=== PATIENT | male | born 1975 | race Caucasian/White ===

== ENCOUNTER 2017-03-02 23:21 | Inpatient (IN) | payer OTHER ==
[~2017-03-02] VITALS: Ht 182.9 cm; Wt 77.0 kg
[2017-03-02 23:24] VITALS: BP 148/100; PULSE 74; RESP 22; TEMP 98.7; O2SAT 96
[2017-03-02] MEDS ORDERED: CLON1 PO (23:29)
[2017-03-02] MEDS ORDERED: ADDE10 PO (23:29)
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
[2017-03-03] MEDS: PCA - TOTAL MG DILAUDID DELIVERED PER SHIFT OTHER SCH ×4 (00:45→22:00)
[2017-03-03] MEDS ORDERED: CHLORHEXIDINE GLUCONATE 2 % 1 PACK (2 CLOTHS) TOP PRN (00:45)
[2017-03-03] MEDS ORDERED: NALOXONE HCL 0.4 MG/ML AMP IV PUSH PRN (00:45)
[2017-03-03] MEDS ORDERED: MISCELLANEOUS NURSING INFORMATION XX SCH (00:45)
[2017-03-03] MEDS ORDERED: ONDANSETRON HCL 4 MG/2 ML VIAL IV PUSH PRN (00:45)
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
[2017-03-03] MEDS: KETOROLAC TROMETHAMINE 30 MG/ML (IVP) VIAL IVP SCH ×4 (01:11→18:49)
[2017-03-03] MEDS: METHOCARBAMOL 500 MG TAB PO SCH ×4 (01:11→20:25)
[2017-03-03 01:59] VITALS: BP 143/93; PULSE 80; RESP 18; TEMP 97.5; O2SAT 98
[2017-03-03] MEDS ORDERED: METOPROLOL TARTRATE 25 MG TAB PO PRN (02:30)
[2017-03-03] MEDS ORDERED: CHLORHEXIDINE GLUCONATE 2 % 1 PACK (2 CLOTHS) TOPICAL PRN (02:30)
[2017-03-03] MEDS ORDERED: SODIUM CHLORID 0.9% 500 ML IV PRN (02:30)
[2017-03-03] MEDS ORDERED: POVIDONE IODINE 5% (ANTISEPSIS KIT) 4 APPLICATIONS EACH NARE PRN (02:30)
[2017-03-03] MEDS ORDERED: LACTATED RINGER'S 1000 ML IV PRN (02:30)
[2017-03-03] MEDS: HYDROmorphone HCL PCA 6 MG/30 ML IV SCH ×2 (02:35→20:24)
[2017-03-03] MEDS ORDERED: CHLORHEXIDINE GLUCONATE 2 % 1 PACK (2 CLOTHS) TOP SCH (04:00)
[2017-03-03 04:14] VITALS: BP 122/67; PULSE 78; RESP 18; TEMP 98; O2SAT 98
--- NOTE | 2017-03-03 06:24 | RADRPT ---
EXAM DATE/TIME: 03/03/2017 05:41 [facility] COMPARISON: No previous studies available for comparison. INDICATIONS : Evaluate for pneumonia MEDICAL HISTORY : None. SURGICAL HISTORY : None. ENCOUNTER: Initial ACUITY: 1 day PAIN SCORE: 8/10 LOCATION: Bilateral chest FINDINGS: A single view of the chest demonstrates the lungs to be symmetrically aerated without evidence of mas s, infiltrate or effusion. The cardiomediastinal contours are unremarkable. Osseous structures are intact. CONCLUSION: The lungs are clear. Carson Babin MD on March 03, 2017 at 6:22 Board Certified Radiologist. This report was verified electronically.
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
[2017-03-03 08:00] VITALS: BP 118/80; PULSE 65; RESP 18; TEMP 98.7; O2SAT 97
[2017-03-03] MEDS: DOCUSATE SODIUM 100 MG CAP PO SCH ×2 (08:55→20:25)
[2017-03-03] MEDS ORDERED: oxyCODONE/ACETAMINOPHEN 5 MG/325 MG TAB PO PRN (11:30)
[2017-03-03 12:00] VITALS: BP 117/75; PULSE 71; RESP 18; TEMP 97.6; O2SAT 95
[2017-03-03] MEDS: oxyCODONE/ACETAMINOPHEN 7.5 MG/325 MG TAB PO PRN (13:10)
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
[2017-03-03 16:00] VITALS: BP 136/89; PULSE 83; RESP 18; TEMP 98.4; O2SAT 92
[2017-03-03 20:00] VITALS: BP 112/57; PULSE 62; RESP 18; TEMP 96.4; O2SAT 94
[2017-03-03] MEDS: MAGNESIUM HYDROXIDE SUSP 30 ML CUP PO SCH (20:26)
[2017-03-04] VITALS (7 sets, daily range): BP systolic 115–144; BP diastolic 59–81; PULSE 63–74; RESP 18; TEMP 97.3–98.7; O2SAT 91–94
[2017-03-04] MEDS: METHOCARBAMOL 500 MG TAB PO SCH (05:38)
[2017-03-04] MEDS: PCA - TOTAL MG DILAUDID DELIVERED PER SHIFT OTHER SCH (05:40)
--- NOTE | 2017-03-04 05:44 | RADRPT ---
EXAM DATE/TIME: 03/04/2017 05:30 [facility] COMPARISON: CHEST SINGLE AP, March 03, 2017, 5:41. INDICATIONS : Left chest pain. Follow up trauma. MEDICAL HISTORY : None. SURGICAL HISTORY : None. ENCOUNTER: Subsequent ACUITY: 2 days PAIN SCORE: 7/10 LOCATION: Left chest FINDINGS: A single view of the chest demonstrates the lungs to be symmetrically aerated without evidence of mas s, infiltrate or effusion. No evidence of pneumothorax. The cardiomediastinal contours are unremarka ble. Nondisplaced fracture lateral left 8th rib. CONCLUSION: 1. The lungs are clear. No evidence of pneumothorax. 2. Nondisplaced fracture lateral left 8th rib. Carson Babin MD on March 04, 2017 at 5:42 Board Certified Radiologist. This report was verified electronically.
[2017-03-04 06:02] LABS: AUTOMATED NEUTROPHIL # 5.5 TH/MM3 (1.8-7.7); BASOPHIL % 0.4 % (0.0-2.0); EOSINOPHIL # 0.1 TH/MM3 (0-0.4); EOSINOPHIL % 0.8 % (0.0-4.0); HEMATOCRIT 36.2 % (39.0-51.0); HEMO FLAGS DIFF FINAL; LYMPH % 24.6 % (9.0-44.0); LYMPHOCYTE # 2.1 TH/MM3 (1.0-4.8); MEAN CELL VOLUME 91.3 FL (80.0-100.0); MEAN CORPUSCULAR HEMOGLOBIN 31.3 PG (27.0-34.0); MEAN CORPUSCULAR HGB CONC 34.3 % (32.0-36.0); MONO % 9.3 % (0.0-8.0); NEUT % 64.9 % (16.0-70.0); PLATELET COUNT 232 TH/MM3 (150-450); RED BLOOD COUNT 3.96 MIL/MM3 (4.50-5.90); RED CELL DISTRIBUTION WIDTH 13.3 % (11.6-17.2); WHITE BLOOD COUNT 8.5 TH/MM3 (4.0-11.0)
[2017-03-04 06:27] LABS: ALT (GPT) 25 U/L (12-78); ANION GAP 7 MEQ/L (5-15); AST (GOT) 19 U/L (15-37); BICARBONATE 29.6 MEQ/L (21.0-32.0); BLOOD UREA NITROGEN 6 MG/DL (7-18); CHLORIDE 104 MEQ/L (98-107); GLOMERULAR FILTRATION RATE 120 ML/MIN (>89); POTASSIUM 3.5 MEQ/L (3.5-5.1); SODIUM (NA) 141 MEQ/L (136-145)
[2017-03-04 06:30] LABS: ALKALINE PHOSPHATASE 57 U/L (45-117); TOTAL BILIRUBIN ADULT 0.3 MG/DL (0.2-1.0)
[2017-03-04] MEDS: oxyCODONE/ACETAMINOPHEN 7.5 MG/325 MG TAB PO PRN (07:32)
[2017-03-04] MEDS: DOCUSATE SODIUM 100 MG CAP PO SCH (07:33)
[2017-03-04] MEDS: MAGNESIUM HYDROXIDE SUSP 30 ML CUP PO SCH (07:35)
--- NOTE | 2017-03-04 07:40 | PD.ORT.PN ---
Subjective Subjective Remarks Pain controlled left shoulder. Is anxious to be discharged Objective Vitals Vital Signs Date Time Temp Pulse Resp B/P (MAP) Pulse Ox O2 Delivery O2 Flow Rate FiO2 03/04/17 04:04 72 03/04/17 04:00 98.4 70 18 121/74 (90) 94 03/04/17 01:17 67 03/04/17 00:30 97.3 63 18 115/81 (92) 93 03/04/17 00:26 63 03/03/17 20:00 96.4 62 18 112/57 (75) 94 03/03/17 16:00 98.4 83 18 136/89 (105) 92 03/03/17 12:00 97.6 71 18 117/75 (89) 95 03/03/17 08:00 98.7 65 18 118/80 (93) 97 I/O 03/03/17 03/03/17 03/03/17 03/04/17 03/04/17 03/04/17 07:00 15:00 23:00 07:00 15:00 23:00 Intake Total 120 ml 720 ml 480 ml Output Total 600 ml 600 ml Balance -480 ml 720 ml -120 ml Intake Oral 120 ml 720 ml 480 ml Output Urine Total 600 ml 600 ml # Voids 2 # Bowel Movements 0 0 0 Result Diagram: 03/04/17 0508 03/04/17 0508 Imaging Last 24 hours Impressions Chest X-Ray 03/04/17 0600 Signed Impressions: Service Date/Time: Saturday, March 04, 2017 05:30 - CONCLUSION: 1. The lungs are clear. No evidence of pneumothorax. 2. Nondisplaced fracture lateral left 8th rib. Carson Babin MD Objective Remarks Left upper extremity: Pain to palpation over clavicle. No pain to movement of elbow wrist and fingers. Mild tenderness with range of motion of shoulder Assessment & Plan Assessment and Plan Left clavicle fracture Nonoperative treatment with sling and swath Nonweightbearing left upper extremity Orthopedically cleared for discharge Follow-up Dr. Rodas or ANTHONY in 2-3 weeks Lloyd Edwards Jr. Mar 04, 2017 07:40
[2017-03-04] MEDS ORDERED: HYDR-3580 PO (07:42)
[2017-03-04] MEDS ORDERED: CALCTAB19 PO (07:42)
[2017-03-04] MEDS ORDERED: MAGN30S PO (07:52)
[2017-03-04] MEDS ORDERED: DOCU1CAP39 PO (07:52)
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
== END 2017-03-04 09:42 | disposition home or self-care (01) | DRG 184 ==
LOC: NEPE 23:21 → NEDA 03-03 00:05 → N06B 03-03 01:27 → N06A 03-03 01:39
PROVIDERS: ADMIT Surgery Trauma Surgery; ATTEND Surgery Trauma Surgery
DX: S22.42XA Multiple fractures of ribs, left side, initial encounter for closed fracture (principal); S27.321A Contusion of lung, unilateral, initial encounter; S42.002A Fracture of unspecified part of left clavicle, initial encounter for closed fracture; S42.102A Fracture of unspecified part of scapula, left shoulder, initial encounter for closed fracture; F31.9 Bipolar disorder, unspecified; Z72.0 Tobacco use; V86.55XA Driver of 3- or 4- wheeled all-terrain vehicle (ATV) injured in nontraffic accident, initial encounter; F90.9 Attention-deficit hyperactivity disorder, unspecified type; F12.90 Cannabis use, unspecified, uncomplicated; S20.212A Contusion of left front wall of thorax, initial encounter
CPT/HCPCS: 71010; 80053; 85025; 94150; 99285; J1170; J1885